=== PATIENT | male | born 1955 | race Caucasian/White ===

== ENCOUNTER 2018-10-30 09:36 | Day surgery (SDC) | payer OTHER ==
[2018-10-30] MEDS: LACTATED RINGER'S 1,000 ML IV (10:39)
[2018-10-30] MEDS ORDERED: HYDROmorphONE 1 MG/5 ML IV SYRINGE IV ×5 (13:00→13:30)
[2018-10-30] MEDS ORDERED: LABETALOL HCL 20MG INJ IV ×2 (13:00→13:30)
[2018-10-30] MEDS ORDERED: LORAZEPAM 2 MG INJ IV (13:00)
[2018-10-30] MEDS ORDERED: ONDANSETRON 4 MG INJ IV ×2 (13:00→13:30)
[2018-10-30] MEDS ORDERED: DIPHENHYDRAMINE 50 MG INJ IV (13:00)
[2018-10-30] MEDS ORDERED: OXYCODONE/ACETAMINOPHEN (5/325) TAB PO ×2 (13:00→13:30)
[2018-10-30] MEDS ORDERED: MEPERIDINE 25 MG INJ IV ×2 (13:00→13:30)
[2018-10-30] MEDS ORDERED: MIDAZOLAM 1 MG/ML 2 ML INJ (13:07)
[2018-10-30] MEDS ORDERED: PROPOFOL 20 ML (13:07)
[2018-10-30] MEDS ORDERED: FENTAnyl 50 MCG/ML VIAL (13:07)
[2018-10-30] MEDS ORDERED: LIDOCAINE 2% (SDV) 5 ML INJ (13:07)
[2018-10-30] MEDS ORDERED: CIPROFLOXACIN 400MG/D5W 200 ML ×2 (13:17→13:31)
[2018-10-30] MEDS ORDERED: ONDANSETRON 4 MG INJ (13:17)
[2018-10-30] MEDS ORDERED: hydrALAzine 20 MG INJ IV (13:30)
[2018-10-30] MEDS: HYDROmorphONE 1 MG/5 ML IV SYRINGE IV (14:22)
[2018-10-30] MEDS: OXYCODONE/ACETAMINOPHEN (5/325) TAB PO (16:11)
== END 2018-10-30 16:15 | disposition home or self-care (01) ==
LOC: SDS 09:36
DX: N40.1 Benign prostatic hyperplasia with lower urinary tract symptoms (principal); N13.8 Other obstructive and reflux uropathy
CPT/HCPCS: 52441